=== PATIENT | male | born 1990 | race African-American/Black ===

== ENCOUNTER 2016-12-07 16:35 | Emergency (ER) | payer SELFPAY ==
[2016-12-07 16:46] VITALS: BP 119/71; PULSE 74; RESP 17; TEMP 96.7
--- NOTE | 2016-12-07 17:18 | ED ---
ENT HPI - General Chief complaint: ENT Stated complaint: Jaw Pain Time Seen by Provider: 12/07/16 16:47 Source: patient, RN notes reviewed, old records reviewed Mode of arrival: ambulatory Limitations: no limitations - History of Present Illness Initial comments: This is a 26 year old male with CC of left jaw pain for one day. Patient states it was a shooting pain that radiated from his right lower tooth to his ear. 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 He is concerned that this is similiar to an infection after he had his tongue pierced. Patient denies any fever or chills. He also reports that he had a taste of blood and foul odor in his mouth. - Related Data Home Medications Medication Instructions Recorded Confirmed Multivitamin [Men's Multi-Vitamin] 1 each PO 12/07/16 Previous Rx's Medication Instructions Recorded Penicillin V Potassium [Pen Vee K] 500 mg PO QID #40 tab 12/07/16 Allergies Allergy/AdvReac Type Severity Reaction Status Date / Time codeine Allergy Intermediate Rash/Hives Verified 12/07/16 16:40 Review of Systems ROS Statement: Those systems with pertinent positive or pertinent negative responses have been documented in the HPI. ROS Other: All systems not noted in ROS Statement are negative. Past Medical History Past Medical History: No Reported History History of Any Multi-Drug Resistant Organisms: None Reported Additional Past Surgical History / Comment(s): Spleenectomy Past Psychological History: No Psychological Hx Reported Smoking Status: Current every day smoker Past Alcohol Use History: Occasional Past Drug Use History: Marijuana General Exam - General Exam Comments Initial Comments: This is a 26 year old male, no distress. Limitations: no limitations General appearance: alert, in no apparent distress Head exam: Present: atraumatic, normocephalic, normal inspection Eye exam: Present: normal appearance, PERRL, EOMI. Absent: scleral icterus, conjunctival injection, periorbital swelling ENT exam: Present: normal exam, mucous membranes moist. Absent: normal oropharynx (Poor dentition, patient has dental carries. Swelling over the tooth #14. ) Neck exam: Present: normal inspection. Absent: tenderness, meningismus, lymphadenopathy Respiratory exam: Present: normal lung sounds bilaterally. Absent: respiratory distress, wheezes, rales, rhonchi, stridor Cardiovascular Exam: Present: regular rate, normal rhythm, normal heart sounds. Absent: systolic murmur, diastolic murmur, rubs, gallop, clicks GI/Abdominal exam: Present: soft, normal bowel sounds. Absent: distended, tenderness, guarding, rebound, rigid Extremities exam: Present: normal inspection, full ROM, normal capillary refill. Absent: tenderness, pedal edema, joint swelling, calf tenderness Back exam: Present: normal inspection Neurological exam: Present: alert, oriented X3, CN II-XII intact Psychiatric exam: Present: normal affect, normal mood Skin exam: Present: warm, dry, intact, normal color. Absent: rash Course Vital Signs 12/07/16 16:40 Temperature 96.7 F L Pulse Rate 74 Respiratory 17 Rate Blood Pressure 119/71 O2 Sat by Pulse 95 Oximetry Medical Decision Making - Medical Decision Making This is a 26 year old male with CC of left sided jaw pain that radiated towards his ear. Patient has some gum swelling over tooth #14.Patient has history of spleenectomy. Patient given Rx for dental infection for PenVK. Discussed that he sould follow up with dentist. Discussed follow up or return if any alarming signs or symptoms occur. Disposition Clinical Impression: Jaw pain, Gingivitis Disposition: HOME SELF-CARE Condition: Good Instructions: Dental Abscess (ED) Additional Instructions: Patient advised to take the antibiotics as directed. Motrin or Tylenol for pain. Patient should follow-up with dental clinic. [facility] [place] [id number] [place] [address] [phone] (existing clients only) For new clients: [phone] 1st consult: $50 (includes Xrays) Usually 30% less then private dentist for visits after. [employer] [facility] [employer] Have to pay $50 for Xrays anmd rest is covered. [phone] Prescriptions: Penicillin V Potassium [Pen Vee K] 500 mg PO QID #40 tab Referrals: None,Stated [Primary Care Provider] - 1-2 days Bettye Reynolds MD [STAFF PHYSICIAN] - 1-2 days Time of Disposition: 17:16
--- NOTE | 2016-12-08 08:31 | CDI ---
Documentation Clarification OP Dear Kirti Angel PA-C, PAC Please do addendum to ED report for missing HPI and Physical examination. Thank you, Kirby Milligan Cash Applications Analyst If you have any questions, please contact Live Source Operator at [phone] [facility]
== END 2016-12-07 17:27 | disposition home or self-care (01) ==
LOC: EC 16:35
DX: K05.10 Chronic gingivitis, plaque induced (principal); K02.9 Dental caries, unspecified; F17.200 Nicotine dependence, unspecified, uncomplicated; Z88.5 Allergy status to narcotic agent; Z79.899 Other long term (current) drug therapy
CPT/HCPCS: 99283

== ENCOUNTER 2017-02-09 10:03 | Emergency (ER) | payer OTHER ==
[2017-02-09] MEDS ORDERED: metroNIDAZOLE 500 MG TAB PO STA (10:22)
[2017-02-09] MEDS ORDERED: cefTRIAXone 250 MG VIAL IM STA (10:22)
[2017-02-09] MEDS ORDERED: AZITHROMYCIN 500 MG TAB PO STA (10:22)
--- NOTE | 2017-02-09 10:29 | ED ---
General Adult HPI - General Chief complaint: Urogenital Stated complaint: STD Testing Time Seen by Provider: 02/09/17 10:05 Source: patient, RN notes reviewed Mode of arrival: ambulatory Limitations: no limitations - History of Present Illness Initial comments: This is a 27-year-old male who presents emergency Department complaining that his girlfriend was found to have Trichomonas and he wants to be tested for sexual transmitted diseases and treated. Patient states he's had no symptoms. Patient denies any penile drainage. Patient denies any lesions. Patient denies any redness or swelling. Patient denies any areas of lumps or bumps patient denies any fever or chills. Patient denies any problems at this time. - Related Data Home Medications Medication Instructions Recorded Confirmed No Known Home Medications [No 02/09/17 02/09/17 Known Home Medications] Allergies Allergy/AdvReac Type Severity Reaction Status Date / Time codeine AdvReac Intermediate Itching Verified 02/09/17 10:11 Review of Systems ROS Statement: Those systems with pertinent positive or pertinent negative responses have been documented in the HPI. ROS Other: All systems not noted in ROS Statement are negative. Past Medical History Past Medical History: No Reported History History of Any Multi-Drug Resistant Organisms: None Reported Additional Past Surgical History / Comment(s): Spleenectomy Past Psychological History: No Psychological Hx Reported Smoking Status: Current every day smoker Past Alcohol Use History: Occasional Past Drug Use History: Marijuana General Exam - General Exam Comments Initial Comments: GENERAL Patient is well-developed and well-nourished. Patient is in mild distress. EYES Patient's pupils are equal and round. Extraocular motion is intact SKIN Unremarkable NEURO The patient is alert and oriented 3 PYSCH Patient has normal interpersonal interactions. MUSCULOSKELETAL All 4 times and full range of motion GENITALIA on physical examination there was no penile or scrotal lesions. There is no areas of swelling or tenderness. There did not appear to be any drainage. Limitations: no limitations Course Vital Signs 02/09/17 10:04 Temperature 97.4 F L Pulse Rate 79 Respiratory 18 Rate Blood Pressure 137/88 O2 Sat by Pulse 99 Oximetry Disposition Clinical Impression: STD (male) Disposition: HOME SELF-CARE Condition: Good Instructions: Sexually Transmitted Diseases (ED), Trichomoniasis (ED) Referrals: None,Stated [Primary Care Provider] - 1-2 days Time of Disposition: 10:28
[2017-02-09 11:25] VITALS: BP 119/76; PULSE 65; RESP 16; TEMP 98.8
== END 2017-02-09 11:44 | disposition home or self-care (01) ==
LOC: EC 10:03
DX: A64 Unspecified sexually transmitted disease (principal); F17.200 Nicotine dependence, unspecified, uncomplicated; Z88.5 Allergy status to narcotic agent
CPT/HCPCS: 87491; 87591; 96372; 99283

== ENCOUNTER 2017-06-16 21:36 | Emergency (ER) | payer OTHER ==
[2017-06-16] MEDS ORDERED: SODIUM CHLORIDE 0.9% 1,000 ML IV ONE (22:28)
[2017-06-16] MEDS ORDERED: MECLIZINE 12.5 MG TAB PO STA (22:28)
[2017-06-16] MEDS ORDERED: ONDANSETRON 4 MG/2 ML VIAL IVP STA (22:28)
[2017-06-16 22:54] LABS: Glucose,Whole Blood 97 mg/dL (75-99)
--- NOTE | 2017-06-16 22:59 | XR ---
EXAMINATION TYPE: XR chest 2V DATE OF EXAM: 06/16/2017 COMPARISON: NONE HISTORY: Chest pain TECHNIQUE: Frontal and lateral views of the chest are obtained. FINDINGS: Heart and mediastinum are normal. Lungs are clear. Diaphragm is normal. Bony thorax appear s normal. There are chest leads. IMPRESSION: Normal chest
[2017-06-16 23:00] LABS: Basophils % (A) 0 %; Eosinophils # (A) 0.5 k/uL (0-0.7); Eosinophils % (A) 5 %; HCT 44.4 % (39.0-53.0); Lymphocytes # (A) 4.5 k/uL (1.0-4.8); Lymphocytes % (A) 44 %; MCH 31.3 pg (25.0-35.0); MCHC 33.8 g/dL (31.0-37.0); MCV 92.6 fL (80.0-100.0); Mean Platelet Volume 7.1; Monocytes # (A) 0.8 k/uL (0-1.0); Monocytes % (A) 7 %; Neutrophils # (A) 4.2 k/uL (1.3-7.7); Neutrophils % (A) 41 %; Platelet Count 460 k/uL (150-450); RBC 4.79 m/uL (4.30-5.90); RDW 11.8 % (11.5-15.5); WBC 10.2 k/uL (3.8-10.6)
[2017-06-16 23:14] LABS: ALT 37 U/L (21-72); AST 34 U/L (17-59); Albumin 4.3 g/dL (3.5-5.0); Alkaline Phosphatase 58 U/L (38-126); Anion Gap 13 mmol/L; Blood Urea Nitrogen 16 mg/dL (9-20); Calcium 9.9 mg/dL (8.4-10.2); Carbon Dioxide 23 mmol/L (22-30); Chloride 108 mmol/L (98-107); Glucose 84 mg/dL (74-99); Lipase 233 U/L (23-300); Potassium 4.6 mmol/L (3.5-5.1); Sodium 144 mmol/L (137-145); Total Bilirubin 0.4 mg/dL (0.2-1.3); Total Protein 7.1 g/dL (6.3-8.2)
[2017-06-17 00:25] VITALS: BP 122/77; PULSE 51; RESP 16; TEMP 98.6
--- NOTE | 2017-06-17 00:25 | ED ---
Chest Pain HPI - General Chief Complaint: Chest Pain Stated Complaint: Nausea, vomiting, chest pain, dizziness Time Seen by Provider: 06/16/17 21:53 Source: patient Mode of arrival: ambulatory Limitations: no limitations - History of Present Illness Initial Comments: 27-year-old male was any for evaluation of chest pain, shortness of breath, and head spinning dizziness. He states that this started suddenly at 1800 and was sudden in onset and continued until EMS arrival. This is happened previously and he stated that he did not go to the ED at that time that his symptoms are spontaneously resolved. Today his symptoms continued raising concern that something might be wrong and he came to the ED. EMS states that when they arrived he was feeling nauseous and given Zofran however the patient had an episode of emesis regardless. He had one more prior to arrival however there were no other events during transport. He states the chest pain is left-sided without any radiation and the shortness of breath is subjective without fevers, cough, pain with inspiration. - Related Data Home Medications Medication Instructions Recorded Confirmed Clear Lung 2 cap PO BID 06/16/17 06/16/17 Previous Rx's Medication Instructions Recorded Meclizine [Antivert] 25 mg PO TID #30 tab 06/17/17 Allergies Allergy/AdvReac Type Severity Reaction Status Date / Time codeine AdvReac Intermediate Itching Verified 06/16/17 21:49 Review of Systems ROS Statement: Those systems with pertinent positive or pertinent negative responses have been documented in the HPI. ROS Other: All systems not noted in ROS Statement are negative. Constitutional: Denies: fever, chills Eyes: Denies: eye pain, eye discharge, vision change ENT: Denies: ear pain, throat pain Respiratory: Reports: dyspnea. Denies: cough, wheezes Cardiovascular: Reports: chest pain, palpitations. Denies: dyspnea on exertion , edema, syncope Endocrine: Denies: fatigue, polydipsia, polyuria Gastrointestinal: Reports: nausea, vomiting. Denies: abdominal pain Genitourinary: Denies: urgency, dysuria Musculoskeletal: Denies: back pain, arthralgia, myalgia Skin: Denies: rash, lesions Neurological: Reports: vertigo. Denies: headache, weakness Psychiatric: Denies: anxiety, depression Hematological/Lymphatic: Denies: easy bleeding, easy bruising EKG Findings - EKG Comments: EKG Findings:: Number sinus rhythm with a ventricular rate of 60, JAGDEEP 160, QRS 100, QT/QTC 394/394. Past Medical History Past Medical History: No Reported History History of Any Multi-Drug Resistant Organisms: None Reported Additional Past Surgical History / Comment(s): Spleenectomy Past Psychological History: No Psychological Hx Reported Smoking Status: Current every day smoker Past Alcohol Use History: Occasional Past Drug Use History: Marijuana General Exam Limitations: no limitations General appearance: alert, in distress (Mild to moderate) Head exam: Present: atraumatic, normocephalic Eye exam: Present: normal appearance, PERRL, EOMI. Absent: scleral icterus, conjunctival injection ENT exam: Present: normal exam, normal oropharynx Neck exam: Present: normal inspection, tenderness Respiratory exam: Present: normal lung sounds bilaterally. Absent: respiratory distress, wheezes, rales, rhonchi, stridor, chest wall tenderness, accessory muscle use, decreased breath sounds Cardiovascular Exam: Present: regular rate, normal rhythm. Absent: bradycardia , tachycardia, irregular rhythm GI/Abdominal exam: Present: soft. Absent: distended, tenderness, guarding, rebound, rigid Rectal exam: Present: deferred Extremities exam: Present: normal inspection, full ROM Back exam: Present: normal inspection, full ROM Neurological exam: Present: alert, oriented X3 Psychiatric exam: Present: normal affect, normal mood Skin exam: Present: warm, dry, intact Course Vital Signs 06/16/17 06/16/17 06/16/17 21:44 21:48 23:15 Temperature 98.4 F Pulse Rate 65 57 L Pulse Rate [ 57 L Bilateral Senior Interactive Producer ] Respiratory 16 20 Rate Blood Pressure 128/77 118/73 O2 Sat by Pulse 99 98 Oximetry 06/17/17 00:23 Temperature 98.6 F Pulse Rate 51 L Pulse Rate [ Bilateral Senior Interactive Producer ] Respiratory 16 Rate Blood Pressure 122/77 O2 Sat by Pulse 98 Oximetry Chest Pain MDM - MDM 27-year-old male presented for evaluation of multiple symptoms of head spinning dizziness, chest pain, shortness of breath, and lightheadedness. He states that his symptoms started around 6:00 today and her similar to previous which had resolved without evaluation. On physical examination the patient is in mild distress due to his nausea however is not vomiting at this time. Abdomen is soft and non-peritoneal without guarding rigidity or rebound. Cranial nerves II through XII intact without focal neurologic deficit however patient does have worsening symptoms with moving his head. We'll obtain chest x-ray, EKG, labs and provide Zofran and Antivert. Labs revealed no significant abnormalities and chest x-ray showed no acute process. The patient was reevaluated and had complete resolution of all symptoms. He stated that he is feeling much better and was at his baseline at this point he would like to be discharged home. He was informed that he would be given a prescription for Antivert and instructed to follow-up with his primary care physician as he may require further outpatient workup since this is the second episode he has had without identifiable etiology. He is further advised to return to this facility if his symptoms should worsen or persist especially over the weekend as he would have no PCP follow-up available. The patient acknowledged an understanding of all information provided and agreed with this plan of care. Disposition Clinical Impression: Dizziness, Chest pain Disposition: HOME SELF-CARE Condition: Stable Instructions: Chest Pain (ED), Vertigo (ED), Dizziness (ED) Additional Instructions: Please use medication as discussed. Please follow up with family doctor if symptoms have not improved over the next two days. Please return to the emergency room if your symptoms increase or worsen or for any other concerns. Prescriptions: Meclizine [Antivert] 25 mg PO TID #30 tab Referrals: None,Stated [Primary Care Provider] - 1-2 days Time of Disposition: 00:25
== END 2017-06-17 00:30 | disposition home or self-care (01) ==
LOC: EC 21:36
DX: R07.9 Chest pain, unspecified (principal); R42 Dizziness and giddiness; R06.02 Shortness of breath; R11.2 Nausea with vomiting, unspecified; F17.200 Nicotine dependence, unspecified, uncomplicated; Z79.899 Other long term (current) drug therapy; Z88.5 Allergy status to narcotic agent
CPT/HCPCS: 36415; 93005; 80053; 83690; 85025; 71046; 99285; 96374; 96361; J2405

== ENCOUNTER → 2019-03-22 | Outpatient (CLI) | payer OTHER ==
--- NOTE | 2019-03-23 13:11 | EST ---
EXERCISE STRESS DATE OF SERVICE: 03/22/2019 AGE: 29 SEX: Male HT: 71 WT: 202 PROTOCOL: Nazario STAGE: IV DURATION OF EXERCISE: 11 minutes 30 seconds HEART RATE REST: 73 BLOOD PRESSURE REST: 116/83 MAXIMUM HEART RATE ACHIEVED: 161 MAXIMUM BLOOD PRESSURE: 158/66 85% MPHR: 161 100% MPHR: 189 METS: 12.1 INDICATIONS: Chest pain. CLINICAL INFORMATION: This exercise stress test was performed. Patient was exercised for a total of 11 minute and 30 seconds. Peak heart rate of 161 was achieved. Maximum blood pressure 158/66 mmHg was noted. Resting EKG shows normal sinus rhythm with normal WA interval and QRS duration and normal ST-T waves. No ST-segment depression suggestive of ischemia was noted. Patient did not complain of any chest pain during the test. FINAL IMPRESSION: This exercise test is not suggestive of ischemia. Patient's exercise tolerance is normal. The patient did not complain of any chest pain during the test. MMODL / IJN: [id number] /
== END | disposition home or self-care (01) ==
LOC: RADNMMAIN 08:26
PROVIDERS: ATTEND Family Medicine
DX: R07.9 Chest pain, unspecified (principal)
CPT/HCPCS: 93017

== ENCOUNTER 2021-06-30 20:34 | Emergency (ER) | payer OTHER ==
[2021-06-30 20:42] VITALS: BP 119/71; PULSE 98; RESP 18; TEMP 99.4
[2021-06-30] MEDS ORDERED: ORPHENADRINE 30 MG/ML 2 ML VIAL IM STA (21:41)
[2021-06-30] MEDS ORDERED: KETOROLAC 15 MG/ML 1 ML VIAL IM STA (21:41)
[2021-06-30] MEDS ORDERED: predniSONE 20 MG TAB PO STA (21:41)
--- NOTE | 2021-06-30 21:43 | ED ---
Back Pain HPI - General Chief Complaint: Back Pain/Injury Stated Complaint: Back Pain, numbness in extremities, SOB Time Seen by Provider: 06/30/21 21:06 Source: patient, family Limitations: no limitations - History of Present Illness Initial Comments: This patient is a 31-year-old man presenting with low back pain that is causing a tingling feeling radiated to both legs. The pain has been getting progressively worse since yesterday. The patient had been helping a friend paint and when he stepped down off a ladder he thinks that he had injured his back. He had similar episode a number of months ago that lasted for weeks and resolved. He is not having any saddle anesthesia, change in bladder or bowel function, weakness of the legs or other symptoms. He has tried some ibuprofen and some Flexeril at home without much relief. MD Complaint: back pain Onset/Timin -: days(s) Similar Symptoms Previously: Yes Place: other Radiation: left leg, right leg Severity: moderate Quality: aching Consistency: constant Improves With: none Worsens With: movement Context: turning/twisting Associated Symptoms: denies other symptoms - Related Data Previous Rx's Medication Instructions Recorded Methocarbamol [Robaxin-750] 750 mg PO TID PRN #30 tablet 06/30/21 predniSONE [Deltasone] 20 mg PO BID #8 tab 06/30/21 Allergies Allergy/AdvReac Type Severity Reaction Status Date / Time codeine AdvReac Intermediate Itching Verified 06/30/21 21:32 Review of Systems ROS Statement: Those systems with pertinent positive or pertinent negative responses have been documented in the HPI. ROS Other: All systems not noted in ROS Statement are negative. Constitutional: Denies: fever, chills, weakness Respiratory: Denies: cough, dyspnea Cardiovascular: Denies: chest pain Gastrointestinal: Denies: abdominal pain, vomiting Genitourinary: Denies: dysuria, frequency, hematuria, testicular pain Musculoskeletal: Reports: back pain Skin: Denies: rash Neurological: Denies: weakness, numbness, paresthesias Past Medical History Past Medical History: No Reported History History of Any Multi-Drug Resistant Organisms: None Reported Additional Past Surgical History / Comment(s): Spleenectomy Past Psychological History: No Psychological Hx Reported Smoking Status: Current every day smoker Past Alcohol Use History: Occasional Past Drug Use History: Marijuana General Exam Limitations: no limitations General appearance: alert, in no apparent distress Head exam: Present: atraumatic, normocephalic Eye exam: Present: normal appearance Neck exam: Present: normal inspection, full ROM. Absent: tenderness Respiratory exam: Present: normal lung sounds bilaterally. Absent: respiratory distress, wheezes, rales, rhonchi, stridor Cardiovascular Exam: Present: regular rate, normal rhythm, normal heart sounds. Absent: systolic murmur, diastolic murmur, rubs, gallop GI/Abdominal exam: Present: soft. Absent: distended, tenderness, guarding, pulsatile mass Extremities exam: Present: normal inspection, normal capillary refill. Absent: pedal edema, calf tenderness Back exam: Present: normal inspection, paraspinal tenderness. Absent: CVA tenderness (R), CVA tenderness (L) Neurological exam: Present: alert, reflexes normal. Absent: motor sensory deficit Skin exam: Present: warm, dry, intact, normal color. Absent: rash Course Vital Signs 06/30/21 20:40 Temperature 99.4 F Pulse Rate 98 Respiratory 18 Rate Blood Pressure 119/71 O2 Sat by Pulse 98 Oximetry Disposition Clinical Impression: Lumbar back pain Disposition: HOME SELF-CARE Condition: Good Instructions (If sedation given, give patient instructions): Acute Low Back Pain (ED) Prescriptions: predniSONE [Deltasone] 20 mg PO BID #8 tab Methocarbamol [Robaxin-750] 750 mg PO TID PRN #30 tablet PRN Reason: pain Is patient prescribed a controlled substance at d/c from ED?: No Referrals: Roney Youssef MD [Primary Care Provider] - 1-2 days
== END 2021-06-30 22:20 | disposition home or self-care (01) ==
LOC: EC 20:34
DX: M54.50 Low back pain, unspecified (principal); F17.200 Nicotine dependence, unspecified, uncomplicated; Z88.5 Allergy status to narcotic agent
CPT/HCPCS: 99284; 96372; J2360; J1885; J7512

== ENCOUNTER 2022-04-06 18:23 | Emergency (ER) | payer OTHER ==
[2022-04-06 18:48] VITALS: RESP 16; TEMP 97.7
--- NOTE | 2022-04-06 19:27 | ED ---
Fall HPI - General Chief Complaint: Fall Stated Complaint: hit head Time Seen by Provider: 04/06/22 18:55 Source: patient, RN notes reviewed Mode of arrival: ambulatory Limitations: no limitations - History of Present Illness Initial Comments: 32-year-old male presents emergency Department chief complaint head trauma yesterday. Patient states he fell striking the left side of his head and temporal region. Patient states that he's felt findings of mild headache but his mother was concerned and which she is in the hospital and he was advised of medical staff to come emergency department. Patient denies any neck pain denies any extremity weakness no chest pain or shortness breath patient's had no visual disturbances no other complaints denies blood thinners. Patient denies recent fevers chills. - Related Data Previous Rx's Medication Instructions Recorded methocarbamoL [Robaxin-750] 750 mg PO TID PRN #30 tablet 06/30/21 predniSONE [Deltasone] 20 mg PO BID #8 tab 06/30/21 Allergies Allergy/AdvReac Type Severity Reaction Status Date / Time codeine AdvReac Intermediate Itching Verified 06/30/21 21:32 Review of Systems ROS Statement: Those systems with pertinent positive or pertinent negative responses have been documented in the HPI. ROS Other: All systems not noted in ROS Statement are negative. Past Medical History Past Medical History: No Reported History History of Any Multi-Drug Resistant Organisms: None Reported Additional Past Surgical History / Comment(s): Spleenectomy Past Psychological History: No Psychological Hx Reported Smoking Status: Current every day smoker Past Alcohol Use History: Occasional Past Drug Use History: Marijuana General Exam Limitations: no limitations General appearance: alert, in no apparent distress Head exam: Present: atraumatic, normocephalic, normal inspection Eye exam: Present: normal appearance, PERRL, EOMI. Absent: scleral icterus, conjunctival injection, periorbital swelling ENT exam: Present: normal exam, normal oropharynx, mucous membranes moist Neck exam: Present: normal inspection, full ROM. Absent: tenderness, meningismus, lymphadenopathy Respiratory exam: Present: normal lung sounds bilaterally. Absent: respiratory distress, wheezes, rales, rhonchi, stridor Cardiovascular Exam: Present: regular rate, normal rhythm, normal heart sounds. Absent: systolic murmur, diastolic murmur, rubs, gallop, clicks GI/Abdominal exam: Present: soft, normal bowel sounds. Absent: distended, tenderness, guarding, rebound, rigid Extremities exam: Present: normal inspection, full ROM, normal capillary refill. Absent: tenderness, pedal edema, joint swelling, calf tenderness Back exam: Present: normal inspection, full ROM. Absent: tenderness Neurological exam: Present: alert, oriented X3, CN II-XII intact, reflexes normal. Absent: motor sensory deficit Skin exam: Present: warm, dry, intact, normal color. Absent: rash Course Vital Signs 04/06/22 18:45 Temperature 97.7 F Pulse Rate 77 Respiratory 16 Rate Blood Pressure 138/84 O2 Sat by Pulse 98 Oximetry Medical Decision Making - Medical Decision Making Was pt. sent in by a medical professional or institution (, PA, DRILL OPERATOR PNEUMATIC, urgent care, hospital, or penitentiary...) When possible be specific @ -No Did you speak to anyone other than the patient for history (EMS, parent, family, police, friend...)? What history was obtained from this source @ -No Did you review nursing and triage notes (agree or disagree)? Why? @ -I reviewed and agree with nursing and triage notes Were old charts reviewed (outside hosp., previous admission, EMS record, old EKG, old radiological studies, urgent care reports/EKG's, penitentiary records)? Report findings @ -No old charts were reviewed Differential Diagnosis (chest pain, altered mental status, abdominal pain women, abdominal pain men, vaginal bleeding, weakness, fever, dyspnea, syncope, headache, dizziness, GI bleed, back pain, seizure, CVA, palpatations, mental health)? @ -Head contusion, intracranial hemorrhage, skull fracture, concussion, this list is not all inclusive EKG interpreted by me (3pts min.). @ -None X-rays interpreted by me (1pt min.). @ -None done CT interpreted by me (1pt min.). @ -CT of the brain does not show any acute intracranial process U/S interpreted by me (1pt. min.). @ -None done What testing was considered but not performed or refused? (CT, X-rays, U/S, labs)? Why? @ -None What meds were considered but not given or refused? Why? @ -None Did you discuss the management of the patient with other professionals (prof essionals i.e. , PA, DRILL OPERATOR PNEUMATIC, lab, RT, psych nurse, social service director, networker, teacher, transit authority police officer, sample case porter)? Give summary @ -No Was smoking cessation discussed for >3mins.? @ -No Was critical care preformed (if so, how long)? @ -No Were there social determinants of health that impacted care today? How? (Homelessness, low income, unemployed, alcoholism, drug addiction, transportation, low edu. Level, literacy, decrease access to med. care, long-term, rehab)? @ -No Was there de-escalation of care discussed even if they declined (Discuss DNR or withdrawal of care, Hospice)? DNR status @ -No What co-morbidities impacted this encounter? (DM, HTN, Smoking, COPD, CAD, Cancer, CVA, ARF, Chemo, Hep., AIDS, mental health diagnosis, sleep apnea, morbid obesity)? @ -None Was patient admitted / discharged? Hospital course, mention meds given and route, prescriptions, significant lab abnormalities, going to OR and other pertinent info. @ -Discharge patient CT was negative for acute process patient has mild closed head injury. Patient discharged in stable condition. Undiagnosed new problem with uncertain prognosis? @ -No Drug Therapy requiring intensive monitoring for toxicity (Heparin, Nitro, Insulin, Cardizem)? @ -No Were any procedures done? @ -No Diagnosis/symptom? @ -Close head injury Acute, or Chronic, or Acute on Chronic? @ -Acute Uncomplicated (without systemic symptoms) or Complicated (systemic symptoms)? @ -Uncomplicated.. Side effects of treatment? @ -No Exacerbation, Progression, or Severe Exacerbation? @ -No Poses a threat to life or bodily function? How? (Chest pain, USA, DC, pneumonia, PE, COPD, DKA, ARF, appy, cholecystitis, CVA, Diverticulitis, Homicidal, Suicidal, threat to staff... and all critical care pts) @ -No Disposition Clinical Impression: Fall, Closed head injury Disposition: HOME SELF-CARE Condition: Stable Instructions (If sedation given, give patient instructions): Head Injury (ED) Additional Instructions: Please return to the Emergency Department if symptoms worsen or any other concerns. Is patient prescribed a controlled substance at d/c from ED?: No Referrals: Roney Youssef MD [Primary Care Provider] - 1-2 days Time of Disposition: 20:29
--- NOTE | 2022-04-06 20:20 | CT ---
EXAMINATION TYPE: CT brain wo con CT DLP: 1137.4 mGycm, Automated exposure control for dose reduction was used. DATE OF EXAM: 04/06/2022 7:37 PM COMPARISON: None. CLINICAL INDICATION:Male, 32 years old with history of trauma, pain after hitting left side of head y esterday. TECHNIQUE: Brain: Axial CT images of the brain were obtained with coronal and sagittal reformats created and rev iewed. Contrast used: None. Oral contrast used: None. FINDINGS: Brain: Extra-axial spaces: No abnormal extra-axial fluid collections. Ventricular system: Within normal limits Cerebral parenchyma: No acute intraparenchymal hemorrhage or mass effect. The porras-white junction is well differentiated. Cerebellum: Unremarkable. Mass effect: No evidence of midline shift. Intracranial vasculature: unremarkable Soft tissues: Normal. Calvarium/osseous structures: No depressed skull fracture. Paranasal sinuses and mastoid air cells: Moderate left maxillary paranasal sinus disease. Visualized orbits: Orbital contents are intact. IMPRESSION: No acute intracranial process.
[2022-04-06 20:34] VITALS: BP 123/75; PULSE 54
== END 2022-04-06 20:34 | disposition home or self-care (01) ==
LOC: EC 18:23
DX: S09.90XA Unspecified injury of head, initial encounter (principal); F12.90 Cannabis use, unspecified, uncomplicated; F17.200 Nicotine dependence, unspecified, uncomplicated; Z88.5 Allergy status to narcotic agent; W01.10XA Fall on same level from slipping, tripping and stumbling with subsequent striking against unspecified object, initial encounter
CPT/HCPCS: 70450; 99284

== ENCOUNTER → 2024-02-21 | Outpatient (CLI) | payer OTHER ==
--- NOTE | 2024-02-22 16:32 | US ---
EXAMINATION TYPE: US liver DATE OF EXAM: 02/21/2024 COMPARISON: NONE CLINICAL INDICATION: Male, 34 years old with history of R74.01 ELEVATED ALT; Hx Stomach ulcers, Splen ectomy, blood in stool x 2 yrs, and nausea TECHNIQUE: Grayscale and color Doppler imaging of the right upper quadrant was performed. FINDINGS: EXAM MEASUREMENTS: Liver Length: 15.0 cm Gallbladder Wall: 0.3 cm CBD: 0.5 cm Right Kidney: 11.7 x 4.8 x 2.9 cm AIR BRAKE RIGGER NOTES: Pancreas: Tail obscured by overlying bowel gas Liver: wnl Gallbladder: wnl Evidence for sonographic Solis's sign: No CBD: wnl Right Kidney: wnl Difficult exam due to overlying bowel gas IMPRESSION: 1. No suspicious acute right upper quadrant changes [facility], , 02/22/2024 4:29 PM
== END | disposition home or self-care (01) ==
LOC: RADUSWWP 06:59
PROVIDERS: ATTEND Family Medicine
DX: R74.01 Elevation of levels of liver transaminase levels (principal); Z90.81 Acquired absence of spleen; Z87.11 Personal history of peptic ulcer disease
CPT/HCPCS: 76705

== ENCOUNTER 2024-10-10 13:45 | Emergency (ER) | payer OTHER ==
[2024-10-10 13:49] VITALS: RESP 18
--- NOTE | 2024-10-10 13:58 | ED ---
GI Bleed HPI - General Chief complaint: GI Bleed Stated complaint: Blood in Stool Time Seen by Provider: 10/10/24 13:52 Source: patient, RN notes reviewed, old records reviewed Mode of arrival: ambulatory Limitations: no limitations - History of Present Illness Initial comments: This is a 34 male to the ER today. This male presents today for the ER patient is here for evaluation in regards to GI bleeding. Patient has history of GI bleeding history of colonoscopy which she believes was normal. Maybe some inflammatory changes patient believes he may have an ulcer but had bright red blood in the stool today may be passed a blood clot. Also feeling symptoms of lightheadedness dizziness with abdominal pain. No blood thinners, patient takes no medications MD complaint: blood on toilet paper, blood streaked stool -: unknown (Patient has been symptoms ongoing for weeks to months, has had colonoscopy investigating cause of bleeding) Quality: cramping Consistency: intermittent Improves with: none Context: history of GI bleed Associated Symptoms: abdominal pain, nausea, other (Dizziness) - Related Data Previous Rx's Medication Instructions Recorded methocarbamoL [Robaxin-750] 750 mg PO TID PRN #30 tablet 06/30/21 predniSONE [Deltasone] 20 mg PO BID #8 tab 06/30/21 Allergies Allergy/AdvReac Type Severity Reaction Status Date / Time codeine AdvReac Intermediate Itching Verified 10/10/24 13:49 Review of Systems ROS Statement: Those systems with pertinent positive or pertinent negative responses have been documented in the HPI. ROS Other: All systems not noted in ROS Statement are negative. Past Medical History Past Medical History: No Reported History History of Any Multi-Drug Resistant Organisms: None Reported Additional Past Surgical History / Comment(s): Spleenectomy Past Psychological History: No Psychological Hx Reported Smoking Status: Current every day smoker Past Alcohol Use History: Occasional Past Drug Use History: Marijuana General Exam Limitations: no limitations General appearance: alert, in no apparent distress Head exam: Present: atraumatic, normocephalic, normal inspection Eye exam: Present: normal appearance, PERRL, EOMI. Absent: scleral icterus, conjunctival injection, periorbital swelling ENT exam: Present: normal exam, mucous membranes moist Neck exam: Present: normal inspection. Absent: tenderness, meningismus, lymp hadenopathy Respiratory exam: Present: normal lung sounds bilaterally. Absent: respiratory distress, wheezes, rales, rhonchi, stridor Cardiovascular Exam: Present: regular rate, normal rhythm, normal heart sounds. Absent: systolic murmur, diastolic murmur, rubs, gallop, clicks GI/Abdominal exam: Present: soft, normal bowel sounds. Absent: distended, tenderness, guarding, rebound, rigid Extremities exam: Present: normal inspection, full ROM, normal capillary refill. Absent: tenderness, pedal edema, joint swelling, calf tenderness Back exam: Present: normal inspection Neurological exam: Present: alert, oriented X3, CN II-XII intact Psychiatric exam: Present: normal affect, normal mood Skin exam: Present: warm, dry, intact, normal color. Absent: rash Course Vital Signs 10/10/24 10/10/24 10/10/24 13:47 14:41 16:01 Temperature 97.8 F 98.1 F Pulse Rate 67 57 L 63 Respiratory 18 18 18 Rate Blood Pressure 160/90 140/100 130/85 O2 Sat by Pulse 98 99 100 Oximetry - Reevaluation(s) Reevaluation #1: 10/10/24 15:40 Medical records reviewed Reevaluation #2: 10/10/24 15:40 Patient has no active GI bleeding here in the ER Reevaluation #3: 10/10/24 15:40 Patient informed of results questions answered Reevaluation #4: Was pt. sent in by a medical professional or institution (, PA, SOCCER COACH, urgent care, hospital, or snf...) When possible be specific @ -no Did you speak to anyone other than the patient for history (EMS, parent, family, police, friend...)? What history was obtained from this source @ -no Did you review nursing and triage notes (agree or disagree)? Why? @ -agree Are old charts reviewed (outside hosp., previous admission, EMS record, old EKG, old radiological studies, urgent care reports/EKG's, snf records)? Report findings @ -yes Differential Diagnosis (chest pain, altered mental status, abdominal pain women, abdominal pain men, vaginal bleeding, weakness, fever, dyspnea, syncope, headache, dizziness, GI bleed, back pain, seizure, CVA, palpatations, mental health, musculoskeletal)? @ -prior EKG interpreted by me (3pts min.). @ -no X-rays interpreted by me (1pt min.). @ -no CT interpreted by me (1pt min.). @ -yes negative for acute disease U/S interpreted by me (1pt. min.). @ -no What testing was considered but not performed or refused? (CT, X-rays, U/S, labs)? Why? @ -none What meds were considered but not given or refused? Why? @ -none Did you discuss the management of the patient with other professionals (professionals i.e. , PA, SOCCER COACH, lab, RT, psych nurse, social staff worker, chain pegger, teacher, airfield engineer officer, case reviewer)? Give summary @ -no Was smoking cessation discussed for >3mins.? @ -no Was critical care preformed (if so, how long)? @ -no Were there social determinants of health that impacted care today? How? (Homelessness, low income, unemployed, alcoholism, drug addiction, transportation, low edu. Level, literacy, decrease access to med. care, intermediate, rehab)? @ -none Was there de-escalation of care discussed even if they declined (Discuss DNR or withdrawal of care, Hospice)? DNR status @ -no What co-morbidities impacted this encounter? (DM, HTN, Smoking, COPD, CAD, Cancer, CVA, ARF, Chemo, Hep., AIDS, mental health diagnosis, sleep apnea, morbid obesity)? @ -none Was patient admitted / discharged? Hospital course, mention meds given and route, prescriptions, significant lab abnormalities, going to OR and other pertinent info. @ - 34 male to the ER for evaluation patient can be discharged home CT scan negative hemoglobin normal no active GI bleeding here in the ER Discharge abdominal pain and GI bleed Undiagnosed new problem with uncertain prognosis? @ -no Drug Therapy requiring intensive monitoring for toxicity (Heparin, Nitro, Insulin, Cardizem)? @ -no Were any procedures done? @ -no Diagnosis/symptom? @ - Acute, or Chronic, or Acute on Chronic? @ -Acute Uncomplicated (without systemic symptoms) or Complicated (systemic symptoms)? @ -Complicated Side effects of treatment? @ -no Exacerbation, Progression, or Severe Exacerbation? @ -exacerbation Poses a threat to life or bodily function? How? (Chest pain, USA, [place], pneumonia, PE, COPD, DKA, ARF, appy, cholecystitis, CVA, Diverticulitis, Homicidal, Suicidal, threat to staff... and all critical care pts) @ -no Reevaluation #5: Differential GI Bleed: Esophageal varices, aortoenteric fistula, Teresa-Peoples, gastritis, peptic ulcer disease, diverticulosis, inflammatory bowel disease, hemorrhoids, fissure, colitis, malignancy, Meckel's diverticulum, this is not meant to be an all- inclusive list. Medical Decision Making - Medical Decision Making 34 male to the ER for evaluation patient can be discharged home CT scan negative hemoglobin normal no active GI bleeding here in the ER - Lab Data Result diagrams: 10/10/24 14:40 10/10/24 14:40 Lab Results 10/10/24 10/10/24 10/10/24 Range/Units 14:40 14:40 14:40 WBC 10.53 H (4.50-10.00) 10*3/uL RBC 5.06 (4.40-5.60) 10*6/uL Hgb 16.3 (13.0-17.0) g/dL Hct 46.3 (39.6-50.0) % MCV 91.5 (80.0-97.0) fL MCH 32.2 H (27.0-32.0) pg MCHC 35.2 (32.0-37.0) g/dL Plt Count 488 H (140-440) 10*3/uL MPV 8.9 L (9.5-12.2) fL Immature Gran % (Auto) 0.2 % Neutrophils % (Manual) 51 % Lymphocytes % (Manual) 37 % Monocytes % (Manual) 6 % Eosinophils % (Manual) 6 % Immature Gran # 0.02 (0.00-0.04) 10*3/uL Neutrophils # (Manual) 5.37 (1.3-7.7) k/uL Lymphocytes # (Manual) 3.90 (1.0-4.8) k/uL Monocytes # (Manual) 0.63 (0-1.0) k/uL Eosinophils # (Manual) 0.63 (0-0.7) k/uL Nucleated RBCs 0 (0-0) /100 WBC Manual Slide Review Performed PT 11.0 (10.0-12.5) sec INR 1.0 (<1.2) APTT 25.7 (22.0-30.0) sec Sodium 140 (137-145) mmol/L Potassium 4.6 (3.5-5.1) mmol/L Chloride 105 (98-107) mmol/L Carbon Dioxide 25 (22-30) mmol/L Anion Gap 10 mmol/L BUN 11 (9-20) mg/dL Creatinine 0.96 (0.66-1.25) mg/dL Est GFR (CKD-EPI)AfAm >90 (>60 ml/min/1.73 sqM) Est GFR (CKD-EPI)NonAf >90 (>60 ml/min/1.73 sqM) Glucose 91 (74-99) mg/dL Calcium 10.0 (8.4-10.2) mg/dL Magnesium 2.2 (1.6-2.3) mg/dL Total Bilirubin 0.7 (0.2-1.3) mg/dL AST 44 (17-59) U/L ALT 57 H (4-49) U/L Alkaline Phosphatase 60 (38-126) U/L Total Protein 7.7 (6.3-8.2) g/dL Albumin 4.7 (3.5-5.0) g/dL Lipase 91 (23-300) U/L Blood Type Blood Type Recheck Bld Type Recheck Status Antibody Screen Spec Expiration Date 10/10/24 Range/Units 14:49 WBC (4.50-10.00) 10*3/uL RBC (4.40-5.60) 10*6/uL Hgb (13.0-17.0) g/dL Hct (39.6-50.0) % MCV (80.0-97.0) fL MCH (27.0-32.0) pg MCHC (32.0-37.0) g/dL Plt Count (140-440) 10*3/uL MPV (9.5-12.2) fL Immature Gran % (Auto) % Neutrophils % (Manual) % Lymphocytes % (Manual) % Monocytes % (Manual) % Eosinophils % (Manual) % Immature Gran # (0.00-0.04) 10*3/uL Neutrophils # (Manual) (1.3-7.7) k/uL Lymphocytes # (Manual) (1.0-4.8) k/uL Monocytes # (Manual) (0-1.0) k/uL Eosinophils # (Manual) (0-0.7) k/uL Nucleated RBCs (0-0) /100 WBC Manual Slide Review PT (10.0-12.5) sec INR (<1.2) APTT (22.0-30.0) sec Sodium (137-145) mmol/L Potassium (3.5-5.1) mmol/L Chloride (98-107) mmol/L Carbon Dioxide (22-30) mmol/L Anion Gap mmol/L BUN (9-20) mg/dL Creatinine (0.66-1.25) mg/dL Est GFR (CKD-EPI)AfAm (>60 ml/min/1.73 sqM) Est GFR (CKD-EPI)NonAf (>60 ml/min/1.73 sqM) Glucose (74-99) mg/dL Calcium (8.4-10.2) mg/dL Magnesium (1.6-2.3) mg/dL Total Bilirubin (0.2-1.3) mg/dL AST (17-59) U/L ALT (4-49) U/L Alkaline Phosphatase (38-126) U/L Total Protein (6.3-8.2) g/dL Albumin (3.5-5.0) g/dL Lipase (23-300) U/L Blood Type O Positive Blood Type Recheck O Pos Bld Type Recheck Status No Antibody Screen NEGATIVE Spec Expiration Date 10/13/2024 - 9253 - Radiology Data Radiology results: report reviewed (CT abdomen pelvis negative for acute dis ease), image reviewed Disposition Clinical Impression: Lower gastrointestinal hemorrhage Disposition: HOME SELF-CARE Condition: Fair Instructions (If sedation given, give patient instructions): Gastrointestinal Bleeding (ED) Is patient prescribed a controlled substance at d/c from ED?: No Referrals: Roney Youssef MD [Primary Care Provider] - 1-2 days Radha Ren MD [STAFF PHYSICIAN] - 1-2 days Reyna Irene DO [REFERRING] - 1-2 days Time of Disposition: 15:30
[2024-10-10] MEDS: SODIUM CHLORIDE 0.9% 1,000 ML IV STA (14:41)
[2024-10-10 14:51] LABS: HCT 46.3 % (39.6-50.0); HGB 16.3 g/dL (13.0-17.0); MCH 32.2 pg (27.0-32.0); MCHC 35.2 g/dL (32.0-37.0); MCV 91.5 fL (80.0-97.0); Platelet Count 488 10*3/uL (140-440); RBC 5.06 10*6/uL (4.40-5.60); RDW 12.1 % (11.5-14.5); WBC 10.53 10*3/uL (4.50-10.00)
[2024-10-10 14:58] LABS: INR 1.0 (<1.2); Partial Thromboplastin Time 25.7 sec (22.0-30.0); Prothrombin Time 11.0 sec (10.0-12.5)
[2024-10-10 15:09] LABS: ALT 57 U/L (4-49); African American GFR (CKD) >90 (>60 ml/min/1.73 sqM); Albumin 4.7 g/dL (3.5-5.0); Anion Gap 10 mmol/L; Blood Urea Nitrogen 11 mg/dL (9-20); Calcium 10.0 mg/dL (8.4-10.2); Carbon Dioxide 25 mmol/L (22-30); Chloride 105 mmol/L (98-107); Glucose 91 mg/dL (74-99); Lipase 91 U/L (23-300); Non-African American GFR(CKD) >90 (>60 ml/min/1.73 sqM); Sodium 140 mmol/L (137-145); Total Protein 7.7 g/dL (6.3-8.2)
[2024-10-10 15:11] LABS: AST 44 U/L (17-59); Alkaline Phosphatase 60 U/L (38-126); Magnesium 2.2 mg/dL (1.6-2.3); Potassium 4.6 mmol/L (3.5-5.1)
--- NOTE | 2024-10-10 15:27 | CT ---
EXAMINATION TYPE: CT abdomen pelvis w con DATE OF EXAM: 10/10/2024 COMPARISON: None CLINICAL INDICATION: Male, 34 years old with history of pain; PHH, Bright red stool starting yesterda y. TECHNIQUE: Performed without Oral Contrast and with IV Contrast, patient injected with 100 ml mL of Isovue 300. CT DLP: 1034.[address] CTDI: mGy Automated exposure control for dose reduction was used. FINDINGS: The lung bases are clear. The gallbladder is normal without distention, wall thickening, pericholecystic fluid or gallstones. T here is no biliary ductal dilatation. There is no focal mass or organomegaly involving the liver, pancreas, adrenal glands. There are multi ple small accessory spleens without a dominant normal-appearing spleen. There is no solid renal mass or hydronephrosis and there is homogeneous contrast enhancement of the renal parenchyma. The caliber the abdominal aorta is normal is no retroperitoneal adenopathy or hemor rhage. The bowel loops are normal in caliber and there is no evidence of dilatation or obstruction. No infla mmatory changes are identified in the bowel wall or mesentery. There is no free intraperitoneal air or fluid. No pelvic mass, free fluid, abscess or adenopathy. The osseous structures and soft tissues are intact. IMPRESSION: No acute changes within the abdomen or pelvis. [facility], , 10/10/2024 3:25 PM
[2024-10-10 16:04] VITALS: BP 130/85; PULSE 63; TEMP 98.1
[2024-10-10 16:07] LABS: Eosinophils # (M) 0.63 k/uL (0-0.7); Lymphocytes # (M) 3.90 k/uL (1.0-4.8); Monocytes # (M) 0.63 k/uL (0-1.0); Neutrophils # (M) 5.37 k/uL (1.3-7.7); Neutrophils % (M) 51 %; Total Cells Counted 100
== END 2024-10-10 16:04 | disposition home or self-care (01) ==
LOC: EC 13:45
CPT/HCPCS: 36415; 74177; 80053; 83690; 83735; 85025; 85610; 85730; 86850; 86900; 86901; 96360; 99285